=== PATIENT | female | born 1995 | race Two or more races ===

== ENCOUNTER 2023-08-07 17:40 | Emergency (ER) | payer MEDICAID ==
[~2023-08-07] VITALS: Ht 152.4 cm; Wt 59.0 kg
[2023-08-07 19:30] VITALS: BP 120/74; TEMP 98; O2SAT 96
== END 2023-08-07 19:30 | disposition home or self-care (01) ==
LOC: ER 17:40
DX: M25.571 Pain in right ankle and joints of right foot (principal); M25.471 Effusion, right ankle; Z60.2 Problems related to living alone; F10.10 Alcohol abuse, uncomplicated; Y90.9 Presence of alcohol in blood, level not specified
CPT/HCPCS: 73610-TC